=== PATIENT | male | born 1965 | race African-American/Black ===

== ENCOUNTER 2024-01-31 14:57 | Outpatient (CLI) | payer OTHER, SELFPAY ==
--- NOTE | ~2024-01-31 | XR_ITS ---
Left Knee Technique: AP, lateral, and oblique views were obtained. Clinical History: Pain Findings: No fracture or dislocation is seen. There is moderate tricompartmental degenerative change. There are intra-articular loose bodies posteriorly. Probable small joint effusion is seen. Impression: Moderate tricompartmental osteoarthritis, with posterior intra-articular loose bodies and small joint effusion. Reviewed, dictated and finalized at [facility]. Impression: Moderate tricompartmental osteoarthritis, with posterior intra-articular loose bodies and small joint effusion.
--- NOTE | ~2024-01-31 | XR_ITS ---
Left Shoulder Technique: AP and scapular Y views were obtained. Clinical History: Pain Findings: No fracture or dislocation is seen. Osseous alignment is anatomic. There is minimal degener ative change of the glenohumeral joint and AC joint. Soft tissues are unremarkable. Impression: Minimal degenerative changes, as above. Reviewed, dictated and finalized at [facility]. Impression: Minimal degenerative changes, as above.
--- NOTE | ~2024-01-31 | XR_ITS ---
Cervical Spine: AP, lateral, open-mouth views Clinical History: Pain Findings: There is straightening of the normal cervical lordosis. No fracture or subluxation identifi ed. There is moderate to advanced degenerative disc narrowing throughout the cervical spine, relative ly sparing the C2-C3 and C6-C7. There are mild to moderate facet joint degenerative changes throughou t the cervical spine. There are prominent anterior ossified from C3 through C5. Pre-vertebral soft ti ssues are unremarkable. Impression: Moderate to advanced degenerative spondylosis, as above. No fracture or subluxation. Reviewed, dictated and finalized at location . Impression: Moderate to advanced degenerative spondylosis, as above. No fracture or subluxation.
--- NOTE | ~2024-01-31 | XR_ITS ---
Right Knee Technique: AP, lateral, and sunrise views were obtained. Clinical History: Pain Findings: No fracture or dislocation is seen. There is moderate tricompartmental osteophytes, with tr icompartment osteophyte formation. There are at least 3 large intra-articular loose bodies posteriorl y, measuring up to 3.2 cm in diameter.. Soft tissues are unremarkable. No joint effusion is seen. Impression: Moderate tricompartmental degenerative change with at least 3 large posterior intra-articular loose b odies, as detailed above. Loose bodies may possibly be located within a Morales's cyst. Reviewed, dictated and finalized at location . Impression: Moderate tricompartmental degenerative change with at least 3 large posterior i ntra-articular loose bodies, as detailed above. Loose bodies may possibly be lo cated within a Morales's cyst.
== END 2024-01-31 14:58 | disposition home or self-care (01) ==
DX: M23.41 Loose body in knee, right knee (principal); M17.0 Bilateral primary osteoarthritis of knee; M19.012 Primary osteoarthritis, left shoulder; M47.892 Other spondylosis, cervical region; M25.561 Pain in right knee
CPT/HCPCS: 72040; 73030; 73562